=== PATIENT | female | born 1940 | race Caucasian/White ===

== ENCOUNTER → 2018-09-10 | Outpatient (CLI) | payer MEDICARE, BC ==
--- NOTE | 2018-09-12 15:10 | XCELERA REPORT ---
[address] [address] Lower Extremity Arterial Evaluation Name: KRISS HERNANDEZ Age: 78 yrs Gender: Female : 1940 Patient Status: Outpatient Patient Location: Study Date: 09/10/2018 01:11 PM Procedure: A color flow and duplex scan of the lower extremity arteries was performed bilaterally with velocity and waveform anaylsis. Ankle brachial indicies performed. Reason For Study: PVD Ordering Physician: CHAPIS VINCENT Performed By: Cain Stout Measurements and Calculations Right Left BOTTOM CAGER PSV 135.3 170.6 cm/sec Prox PFA PSV -78.6 -108.7cm/sec Prox SFA PSV 84.4 110.0 cm/sec Mid SFA PSV -85.5 -108.9cm/sec Dist SFA PSV -70.3 -113.1cm/sec Prox Pop A PSV 66.8 93.7 cm/sec Dist DAVE PSV 103.1 110.0 cm/sec Dist [employer] PSV 24.9 100.4 cm/sec Tacho Pedis PSV 97.0 123.6 cm/sec Right Side Arterial Evaluation Normal velocity and triphasic waveforms noted from the Common Femoral artery to the infrageniculate vessels . Triphasic with low velocity in the Posterior Tibial artery. Ankle Brachial index 1.08. PPG's are normal, normal amplitude, crisp, multiphasic waveform. Left Side Arterial Evaluation Normal velocity and triphasic waveforms noted from the Common Femoral artery to the infrageniculate vessels . Triphasic with high velocity in the Dorsalis Pedis arteries. Ankle Brachial index 1.17. PPG's are normal, normal amplitude, crisp, multiphasic waveform. Interpretation Summary Mild hemodynamically significant lesions in the bilateral lower extremities, on duplex imaging, at rest. Almost normal study with very minor findings as noted. Ankle Brachial index suggests no significant vascular compromise. PPG's are entirely normal. : CHAPIS VINCENT > Christopher Rodríguez
== END ==
LOC: SP 12:13
PROVIDERS: ATTEND Podiatrist Foot & Ankle Surgery
DX: I73.9 Peripheral vascular disease, unspecified (principal)
CPT/HCPCS: 93925

== ENCOUNTER → 2020-02-23 | Outpatient (CLI) | payer MEDICARE, BC ==
[2020-02-23 16:00] LABS: APPEARANCE,URINE SLIGHTLY-CLOUDY; BILIRUBIN,URINE NEGATIVE (NEGATIVE); COLOR,URINE YELLOW; GLUCOSE, URINE NEGATIVE (NEGATIVE); KETONES,URINE NEGATIVE (NEGATIVE); LEUKOCYTE ESTERASE,URINE MODERATE (NEGATIVE); NITRITE,URINE POSITIVE (NEGATIVE); PROTEIN,URINE NEGATIVE (NEGATIVE); URINE SPECIFIC GRAVITY 1.012; UROBILINOGEN,URINE NEGATIVE mg/dL (<2.0)
[2020-02-23 16:01] LABS: ABSOLUTE LYMPHOCYTES (AUTO) 1.9 10^3/uL (0.5-4.7); ABSOLUTE MONOCYTES (AUTO) 0.3 10^3/uL (0.1-1.4); BASOPHILS % (AUTO) 0.8 % (0-2); EOSINOPHILS % (AUTO) 0.8 % (0-6); HEMATOCRIT 41.2 % (36.0-47.0); HEMOGLOBIN 13.8 g/dL (12.0-15.5); LYMPHOCYTES % (AUTO) 35.4 % (13-45); MEAN CORPUSCULAR HEMOGLOBIN 29.1 pg (27.0-33.4); MEAN CORPUSCULAR HGB CONC 33.6 g/dL (32.0-36.0); MEAN CORPUSCULAR VOLUME 87 fl (80-97); MONOCYTES % (AUTO) 5.9 % (3-13); PLATELET COUNT 154 10^3/uL (150-450); RED BLOOD COUNT 4.75 10^6/uL (3.72-5.28); RED CELL DISTRIBUTION WIDTH 14.4 % (11.5-14.0); SEGMENTED NEUTROPHILS % (AUTO) 57.1 % (42-78); TOTAL CELLS COUNTED % (AUTO) 100 %; WHITE BLOOD COUNT 5.2 10^3/uL (4.0-10.5)
[2020-02-23 16:21] LABS: ANION GAP 7 (5-19); BLOOD UREA NITROGEN 17 mg/dL (7-20); CALCIUM 9.1 mg/dL (8.4-10.2); CARBON DIOXIDE 25 mmol/L (22-30); CHLORIDE 105 mmol/L (98-107); GLUCOSE 202 mg/dL (75-110); POTASSIUM 4.5 mmol/L (3.6-5.0)
== END ==
LOC: OD 14:15
PROVIDERS: ATTEND Internal Medicine Nephrology
DX: N18.3 Chronic kidney disease, stage 3 (moderate) (principal); N39.0 Urinary tract infection, site not specified
CPT/HCPCS: 36415; 80048; 81001; 85025